=== PATIENT | female | born 1980 | race Caucasian/White ===

== ENCOUNTER 2022-08-23 22:31 | Emergency (ER) | payer OTHER ==
[~2022-08-23] VITALS: Ht 165.1 cm; Wt 84.4 kg
[2022-08-23 22:56] VITALS: BP_SYST 126
--- NOTE | 2022-08-23 22:56 | NUR ---
Received permission to utilyze Right chest wall portacath from ER physician.
--- NOTE | 2022-08-23 23:00 | NUR ---
Patient to ER bed 06 to gown for evaluation. Side rails up. Report given to SALVATORE JARQUIN.
--- NOTE | 2022-08-23 23:10 | NUR ---
Pt reports multiple issues and appears to be anxious. Pt visibly crying but cooperative. Pt reports the followin. having had a burst right eardrum that was treated with one shot of antibiotics a week and a half ago and is concerned that MRSA has spread to inside her ear because she can feel the skin problem in her ear. 2. C/o MRSA skin infection to her Bilateral arms/hands and legs/feet as well as her R ear canal, and upper lip area. (red scratches and healed over scabs noted.) 3. C/o Ongoing infections to skin, ear, nose, and mouth. Right sided mouth pain (points to teeth).
[2022-08-23] MEDS ORDERED: CLINDAMYCIN 900 mg/50mL D5W 50 ML IV ONE (23:30)
[2022-08-23] MEDS ORDERED: NACL 0.9% 1,000 ML IV ONE (23:30)
[2022-08-23] MEDS ORDERED: LORazepam 2 MG/ML VIAL IVP ONE (23:30)
[2022-08-24] MEDS ORDERED: MORPHINE 4 MG INJ. 4 MG/ML VIAL ONE (00:12)
[2022-08-24] MEDS ORDERED: DIPHENHYDRAMINE INJ 50 MG/ML VIAL ONE (00:12)
[2022-08-24] MEDS ORDERED: MORPHINE 4 MG INJ. 4 MG/ML VIAL IVP ONE (00:15)
[2022-08-24] MEDS ORDERED: DIPHENHYDRAMINE INJ 50 MG/ML VIAL IVP ONE (00:15)
[2022-08-24 00:29] LABS: BASOPHILS # (AUTO) 0.1 K/uL (0.0-0.2); BASOPHILS % (AUTO) 0.7 % (0.0-2.0); EOSINOPHILS # (AUTO) 0.2 K/uL (0.0-0.4); HEMATOCRIT 32.6 % (36-48); HEMOGLOBIN 10.8 g/dL (12.0-16.0); LYMPHOCYTES # (AUTO) 2.8 K/uL (1.0-5.5); LYMPHOCYTES % (AUTO) 33.4 % (20.5-51.5); MEAN CORPUSCULAR HEMOGLOBIN 28 pg (27-31); MEAN CORPUSCULAR HGB CONC 33 % (32-36); MEAN CORPUSCULAR VOLUME 84 fL (79.0-98.0); MONOCYTES # (AUTO) 0.9 K/uL (0.0-1.0); MONOCYTES % (AUTO) 10.7 % (1.7-9.3); NEUTROPHILS # (AUTO) 4.4 K/uL (1.8-7.7); NEUTROPHILS % (AUTO) 53.2 % (40.0-70.0); PLATELET COUNT (AUTO) 367 K/uL (130-430); RED BLOOD CELL COUNT(AUTO) 3.87 MIL/uL (4.2-6.2); RED CELL DISTRIBUTION WIDTH 17.7 % (9.0-15.0); WHITE BLOOD COUNT (AUTO) 8.3 K/uL (4.8-10.8)
[2022-08-24 00:38] LABS: CALCIUM 8.7 mg/dL (8.4-11.0); CREATININE 0.81 mg/dL (0.55-1.30)
[2022-08-24 00:49] LABS: ALBUMIN 3.6 g/dL (3.4-4.8); TOTAL BILIRUBIN 0.1 mg/dL (0.0-1.0)
[2022-08-24] MEDS ORDERED: LIDOCAINE VISCOUS 2%, 15 ML UDC MM ONE (01:45)
[2022-08-24] MEDS ORDERED: LIDO40SO4 TP (02:06)
[2022-08-24] MEDS ORDERED: BACI15OI13 TP (02:06)
[2022-08-24] MEDS ORDERED: IBUP-1969 PO (02:06)
[2022-08-24] MEDS ORDERED: HYDR-3917 PO (02:06)
[2022-08-24] MEDS ORDERED: CLIN-142 PO (02:06)
[2022-08-24 02:15] VITALS: BP_SYST 130
--- NOTE | 2022-08-24 02:59 | NUR ---
ACI given, states understanding, remains stable for discharge home.
== END 2022-08-24 02:20 | disposition home or self-care (01) ==
LOC: SED 22:31
DX: H72.91 Unspecified perforation of tympanic membrane, right ear (principal); L98.499 Non-pressure chronic ulcer of skin of other sites with unspecified severity; Z88.0 Allergy status to penicillin; Z88.1 Allergy status to other antibiotic agents; Z91.041 Radiographic dye allergy status; Z88.8 Allergy status to other drugs, medicaments and biological substances; Z79.899 Other long term (current) drug therapy
CPT/HCPCS: 99283; 96374; 96361; 80053; 85025; 87040; 36415; 96375; J7030; J2001; J3490; J1200; J2060; J2270